=== PATIENT | male | born 1995 | race Two or more races ===

== ENCOUNTER 2017-10-12 21:58 | Emergency (ER) | payer SELFPAY ==
[2017-10-12 22:10] VITALS: BP 117/68; PULSE 75; TEMP 98.3; BMI 26.2
[2017-10-12] MEDS ORDERED: IBUPROFEN 600 MG TABLET (FP) PO ONE (22:11)
--- NOTE | 2017-10-12 22:16 | PDOC ---
History of Present Illness - General Chief Complaint: Injury Stated Complaint: RIGHT RIB CAGE PAIN X 3 DAYS Time Seen by Provider: 10/12/17 22:07 History Source: Patient Exam Limitations: No Limitations - History of Present Illness Initial Comments: 10/12/17 22:12 This is a 22-year-old male who comes in complaining of pain in the area of his right lower ribs. Patient says he works out in the gym and thinks he may have pulled a muscle. Patient denies any trauma. Patient denies any sensation of a pop or tear when he was lifting weights. Patient said it has gotten progressively worse over the last couple a days. Patient said when he doesn't use of muscles that it doesn't hurt. It only hurts when he reaches or stretches or lifts something. Patient denies any shortness of breath, cough, congestion, fever, chills or any other complaints. PAST MEDICAL HISTORY: no significant history PAST SURGICAL HISTORY: no significant history FAMILY HISTORY: no pertinant history SOCIAL HISTORY: Pt lives with family and is employed. MEDICATIONS: reviewed ALLERGIES: As per nursing notes Review of Systems General: No fevers or chills, no weakness, no weight loss HEENT: No change in vision. No sore throat,. No ear pain CardioVascular: No chest pain or shortness of breath Respiratory:No cough, or wheezing. Gastrointestinal: no nausea, vomitting, diarrhea or constipation, No rectal bleeding Genitourinary: No dysuria, hematuria, or frequency Musculoskeletal: No joint or muscle pain or swelling Neurologic: No headache, vertigo, dizziness or loss of consciousness Psychiatric: nor depression Skin: No rashes or easy bruising Endocrine: no increased thirst or abnormal weight change Allergic: no skin or latex allergy All other systems reviewed and normal Exam: General: Well-nourished well-developed individual, no acute distress HEENT: Throat: Normal, tonsils normal, no erythema or exudate Neck: Supple, no meningeal signs, no lymphadenopathy Eyes::Pupils equal reactive and round, extraocular motion intact Chest: CHEST wall: Pain is reproduced on palpation over the latissimus dorsi muscles of the lower lateral chest, there is no swelling or ecchymosis to the area. There is no bony tenderness of the ribs or chest wall. Cardiac: S1-S2 normal, regular rate and rhythm, no murmurs rubs or gallops Respiratory: Lungs clear to auscultation bilateral Abdomen: Soft, nondistended, normal bowel sounds, nontender to palpation diffusely Extremities: Warm, dry, no cyanosis, clubbing, or edema Skin: No rashes Neuro: Alert and oriented x3, CN II - XII intact, nonfocal exam with normal strength, normal sensation, normal reflexes, normal gait, Psych: Normal mood and affect Assessment and plan: This is a 22-year-old male with a muscle strain of his latissimus dorsi secondary to working out in the gym. Patient was reassured that it is nothing more serious and given an anti-inflammatory Motrin here in the emergency room a prescription was sent to his pharmacy to continue the Motrin for one week and follow-up with his doctor if not better in one week. Patient was also advised to rest the muscle and not use them until they were better and they had a chance to heal Past History - Past Medical History Allergies/Adverse Reactions: Allergies Allergy/AdvReac Type Severity Reaction Status Date / Time No Known Allergies Allergy Verified 10/12/17 22:00 Home Medications: Ambulatory Orders Ibuprofen [Motrin -] 600 mg PO TID #21 tablet 10/12/17 COPD: No Other medical history: DENIES - Immunization History Immunization Up to Date: No - Suicide/Smoking/Psychosocial Hx Smoking History: Never smoked Have you smoked in the past 12 months: No Information on smoking cessation initiated: No Hx Alcohol Use: No Drug/Substance Use Hx: No Substance Use Type: None *Physical Exam - Vital Signs Last Vital Signs Temp Pulse Resp BP Pulse Ox 98.3 F 75 16 117/68 100 10/12/17 22:02 10/12/17 22:02 10/12/17 22:02 10/12/17 22:02 10/12/17 22:02 *DC/Admit/Observation/Transfer Diagnosis at time of Disposition: Muscle strain of chest wall Qualifiers: Encounter type: initial encounter Qualified Code(s): S29.011A - Strain of muscle and tendon of front wall of thorax, initial encounter - Discharge Dispostion Disposition: HOME Condition at time of disposition: Stable Admit: No - Referrals - Patient Instructions Additional Instructions: For the pain get the prescription filled for Motrin and take one tablet 3 times a day with food don't take on an empty stomach. Take the Motrin for one week. You should be better in one week if you want her to follow-up with your primary care doctor Return to the emergency department immediately with ANY new, persistent or worsening symptoms. Continue any medications as previously prescribed by your physician. You should follow up with your primary doctor as soon as possible regarding today's emergency department visit. . Please make sure your doctor reviews the results of your emergency evaluation. Thank you for coming to the Emergency Department today for your care. It was a pleasure to see you today. Please note that your evaluation is INCOMPLETE until you follow-up with your doctor. - Post Discharge Activity
== END 2017-10-12 22:37 | disposition home or self-care (01) ==
LOC: FER 21:58
DX: S29.011A Strain of muscle and tendon of front wall of thorax, initial encounter (principal); X58.XXXA Exposure to other specified factors, initial encounter; Y93.89 Activity, other specified; Y92.9 Unspecified place or not applicable
CPT/HCPCS: 99281-25

== ENCOUNTER 2018-06-17 12:34 | Emergency (ER) | payer OTHER ==
[2018-06-17 12:38] VITALS: BP 134/79; PULSE 93; TEMP 98.1; BMI 27.6
--- NOTE | 2018-06-17 12:55 | PDOC ---
History of Present Illness - General Chief Complaint: Pain, Acute Stated Complaint: RT FOOT PAIN Time Seen by Provider: 06/17/18 12:47 - History of Present Illness Initial Comments: 06/17/18 13:24 Chief complaint: Pain and swelling right great toe History of present illness: Patient awoke with above symptoms. Particularly painful with weightbearing. Extremely sensitive to touch. Review of systems: Denies fever/chills, headache, URI symptoms, sore throat, cough, chest pain, shortness of breath, abdominal pain, nausea, vomiting, diarrhea, dysuria or other urinary tract symptoms. Remainder systems reviewed and found to be negative. Denies sustaining acute injury or trauma to the foot or toe, although he does play basketball frequently. Past medical history: No history of prior joint disease. Healthy male, no medications. Social history: Denies drugs, alcohol, tobacco. Fully active and without disability Family history: Reviewed and noncontributory including joint disease, rheumatoid arthritis, lupus, and gout Physical exam: Alert and oriented well-developed well-nourished no acute distress cheerful and cooperative Afebrile, vital signs normal HEENT clear Neck supple without bruit mass or nodes Chest clear CV regular without murmur rub or gallop Abdomen benign Extremities: There is swelling and tenderness of the right great toe. Mild warmth. Mild erythema. No deformity. No skin disruption. Impression: Acute swelling of the right great toe. No known trauma. Rule out occult fracture. Rule out gout. Plan: X-ray, CBC chemistries uric acid, further evaluation and treatment depending on results. Past History - Past Medical History Allergies/Adverse Reactions: Allergies Allergy/AdvReac Type Severity Reaction Status Date / Time No Known Allergies Allergy Verified 06/17/18 12:35 Home Medications: Ambulatory Orders Ibuprofen 800 mg PO TID #20 tablet 06/17/18 COPD: No - Immunization History Immunization Up to Date: No - Suicide/Smoking/Psychosocial Hx Smoking History: Never smoked Have you smoked in the past 12 months: No Information on smoking cessation initiated: No Hx Alcohol Use: No Drug/Substance Use Hx: No Substance Use Type: None *Physical Exam - Vital Signs Last Vital Signs Temp Pulse Resp BP Pulse Ox 98.1 F 93 H 18 134/79 99 06/17/18 12:35 06/17/18 12:35 06/17/18 12:35 06/17/18 12:35 06/17/18 12:35 ED Treatment Course - LABORATORY CBC & Chemistry Diagram: 06/17/18 13:09 06/17/18 13:09 Medical Decision Making - Medical Decision Making 06/17/18 13:52 X-rays negative except for soft tissue swelling. 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 If no improvement follow- up with orthopedist on Thursday. *DC/Admit/Observation/Transfer Diagnosis at time of Disposition: Sprain of toe Qualifiers: Encounter type: initial encounter Qualified Code(s): S93.509A - Unspecified sprain of unspecified toe(s), initial encounter - Discharge Dispostion Disposition: HOME Condition at time of disposition: Stable Decision to Admit order: No - Prescriptions Prescriptions: Ibuprofen 800 mg PO TID #20 tablet - Referrals Referrals: Shoaib Gilmore MD [Staff Physician] - 06/21/18 - Patient Instructions Printed Discharge Instructions: DI for Toe Sprain Additional Instructions: Rest, ice, elevate. Medication as directed. If no improvement see orthopedist for further evaluation and treatment. - Post Discharge Activity Forms/Work/School Notes: Back to Work
[2018-06-17 13:22] LABS: BASO % 1.9 % (0-2.0); EOS % 2.2 % (0-4.5); HEMATOCRIT 50.8 % (35.4-49); HEMOGLOBIN 16.7 GM/dl (11.7-16.9); MCH 29.4 pg (25.7-33.7); MCHC 32.8 g/dl (32.0-35.9); MEAN CELL VOLUME 89.5 fl (80-96); MEAN PLT VOLUME 7.8 fl (7.5-11.1); MONO % 6.8 % (3.8-10.2); NEUT % 55.1 % (42.8-82.8); PLATELET COUNT 397 K/MM3 (134-434); RBC 5.68 M/mm3 (4.00-5.60); RDW 12.8 % (11.9-15.9); WHITE BLOOD COUNT 7.9 K/mm3 (4.0-10.8)
[2018-06-17 13:35] LABS: ALBUMIN 4.6 g/dl (3.5-5.0); ALK PHOS 70 U/L (32-92); ANION GAP 6 MMOL/L (8-16); BILIRUBIN,TOTAL 0.4 mg/dl (0.2-1.0); BLOOD UREA NITROGEN 27 mg/dl (7-18); CALCIUM 9.4 mg/dl (8.4-10.2); CHLORIDE 102 mmol/L (98-107); CO2 26 mmol/L (22-28); CREATININE 0.9 mg/dl (0.6-1.3); GLUCOSE,RANDOM 101 mg/dl (74-106); POTASSIUM 4.2 mmol/L (3.5-5.1); SGOT/AST 32 U/L (10-42); SGPT/ALT 31 U/L (10-40); SODIUM 134 mmol/L (136-145); TOT PROT 7.8 g/dl (6.4-8.3); URIC ACID 4.4 mg/dl (2.6-7.2)
[2018-06-17] MEDS ORDERED: KETOROLAC TROMETHAMINE 60 MG/2 ML VIAL IM ONE (13:46)
[2018-06-17] MEDS ORDERED: KETOROLAC TROMETHAMINE 60 MG/2 ML VIAL ONE (13:55)
== END 2018-06-17 14:20 | disposition home or self-care (01) ==
LOC: FER 12:34
PROC: 3E0233Z Introduction of Anti-inflammatory into Muscle, Percutaneous Approach (ICD-10-PCS; principal; 2018-06-17)
DX: S93.509A Unspecified sprain of unspecified toe(s), initial encounter (principal); X58.XXXA Exposure to other specified factors, initial encounter; Y93.89 Activity, other specified; Y92.9 Unspecified place or not applicable
CPT/HCPCS: 36415; 73660-TC-FY; 80053; 84550; 85025; 99283-25

== ENCOUNTER 2018-07-22 15:25 | Emergency (ER) | payer OTHER ==
[2018-07-22 15:44] VITALS: BP 127/69; PULSE 72; TEMP 97.7; BMI 27.7
[2018-07-22] MEDS ORDERED: IBUPROFEN 600 MG TABLET (FP) PO ONE ×3 (15:47→16:16)
--- NOTE | 2018-07-22 15:50 | PDOC ---
History of Present Illness - General Chief Complaint: Pain Stated Complaint: RIGHT SHOULDER PAIN Time Seen by Provider: 07/22/18 15:30 History Source: Patient Exam Limitations: No Limitations - History of Present Illness Initial Comments: 07/22/18 15:47 21-year-old male no past medical history here today complaining of right shoulder pain. Patient states he has had pain in his right shoulder for several weeks. 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 if he gets pain when he abducts his right shoulder beyond 90 denies any new weakness no recent injuries no elbow or wrist pain no new numbness no other complaints states he is here today because he thought wasn't getting much better no fevers no chills Past History - Past Medical History Allergies/Adverse Reactions: Allergies Allergy/AdvReac Type Severity Reaction Status Date / Time No Known Allergies Allergy Verified 07/22/18 15:36 Home Medications: Ambulatory Orders Ibuprofen 800 mg PO TID #20 tablet 06/17/18 COPD: No - Immunization History Immunization Up to Date: No - Suicide/Smoking/Psychosocial Hx Smoking History: Never smoked Have you smoked in the past 12 months: No Hx Alcohol Use: No Drug/Substance Use Hx: No Substance Use Type: None Review of Systems - Review of Systems Constitutional: No: Chills, Diaphoresis, Fever HEENTM: No: Eye Pain Respiratory: No: Cough, Orthopnea Cardiac (ROS): No: Chest Pain Musculoskeletal: Yes: Joint Pain All Other Systems: Reviewed and Negative *Physical Exam - Vital Signs Last Vital Signs Temp Pulse Resp BP Pulse Ox 97.7 F 72 15 127/69 98 07/22/18 15:28 07/22/18 15:28 07/22/18 15:28 07/22/18 15:28 07/22/18 15:28 - Physical Exam Comments: 07/22/18 16:18 awake alert lungs clear bilaterally heart rrr no mrg right shoulder with FROM, min anterior tenderness at AC joint. elbow, wrist from nt. distally n/v intact. no eccymosis. no effusion. no warmth. Moderate Sedation - Procedure Monitoring Vital Signs: Procedure Monitoring Vital Signs Temperature 97.7 F 07/22/18 15:28 Pulse Rate 72 07/22/18 15:28 Respiratory Rate 15 07/22/18 15:28 Blood Pressure 127/69 07/22/18 15:28 O2 Sat by Pulse Oximetry (%) 98 07/22/18 15:28 ED Treatment Course - RADIOLOGY Radiology Studies Ordered: Category Date Time Status SHOULDER-RIGHT [RAD] Stat Radiology 07/22/18 15:46 Ordered Medical Decision Making - Medical Decision Making 07/22/18 16:19 plan xray, nsaids. jorge outpt followup with orthopedics. xray negative. dc home. motrin for pain control. *DC/Admit/Observation/Transfer Diagnosis at time of Disposition: Shoulder injury - Discharge Dispostion Disposition: HOME Condition at time of disposition: Improved - Referrals Referrals: Shoaib Gilmore MD [Staff Physician] - - Patient Instructions Printed Discharge Instructions: Rotator Cuff Repair, Shoulder Tendinopathy Additional Instructions: you should avoid heavy lifting until your shoulder feels better. If it hurts... dont do it. may take several months for your shoulder to recover. you can take motrin 400 mg ( over the counter) for pain. take with food only as needed. you should follow up with an orthopedist. call to schedule. see referral information for dr. gilmore. orthopedist. return for any problems or concerns. - Post Discharge Activity
== END 2018-07-22 16:49 | disposition home or self-care (01) ==
LOC: FER 15:25
DX: S49.91XA Unspecified injury of right shoulder and upper arm, initial encounter (principal); X58.XXXA Exposure to other specified factors, initial encounter; Y93.9 Activity, unspecified; Y92.9 Unspecified place or not applicable
CPT/HCPCS: 73030-TC-RT-FY; 99282-25

== ENCOUNTER 2020-10-03 19:31 | Emergency (ER) | payer OTHER ==
[2020-10-03 19:37] VITALS: BMI 25.2
[2020-10-03] MEDS ORDERED: ePHEDrine SULFATE 50 MG/1 ML AMPULE IVPUSH ONE (20:02)
[2020-10-03] MEDS ORDERED: ePHEDrine SULFATE 50 MG/1 ML AMPULE ONE ×2 (20:06)
[2020-10-03 20:11] VITALS: BP 143/78; PULSE 64; TEMP 98
[2020-10-03] MEDS ORDERED: AMOX TR/POT CLAV 500MG/125MG TABLETS (FP) PO ONE (20:43)
[2020-10-03] MEDS ORDERED: AMOX TR/POT CLAV 500MG/125MG TABLETS (FP) ONE (20:46)
== END 2020-10-03 21:25 | disposition home or self-care (01) ==
LOC: JER 19:31
PROC: 3E033GC Introduction of Other Therapeutic Substance into Peripheral Vein, Percutaneous Approach (ICD-10-PCS; principal; 2020-10-03)
DX: N48.30 Priapism, unspecified (principal)
CPT/HCPCS: 99284-25